=== PATIENT | female | born 2005 | race Caucasian/White ===

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

== ENCOUNTER 2023-12-31 17:31 | Inpatient (IN) | payer OTHER, MEDICAID ==
[~2023-12-31] VITALS: Ht 162.6 cm; Wt 127.3 kg
[~2023-12-31 17:31] MED LIST changes: +ABIL1TAB13 PO; +BUSP10TA PO; +FLUO-290 PO; -FLUO10CA18 PO; +FLUV100C PO; +HYDR50TA70 PO
[2023-12-31 18:37] LABS: HEMATOCRIT 37.6 % (36.0-47.0); HEMOGLOBIN 12.1 g/dl (12.0-15.5); MEAN CORPUSCULAR HEMOGLOBIN 25.9 pg (27.0-33.0); MEAN CORPUSCULAR HGB CONC 32.2 g/dl (32.0-36.5); MEAN CORPUSCULAR VOLUME 80.3 fl (80.0-96.0); PLATELET COUNT, AUTOMATED 417 10^3/uL (150-450); RED BLOOD COUNT 4.68 10^6/uL (4.00-5.40); WHITE BLOOD COUNT 10.2 10^3/uL (4.0-10.0)
[2023-12-31 19:03] LABS: ETHYL ALCOHOL (ETHANOL) < 0.003 % (0.000-0.010)
[2023-12-31 19:04] LABS: HCG, SERUM QUALITATIVE NEGATIVE (NEGATIVE)
[2023-12-31 19:05] LABS: ALBUMIN 3.6 G/DL (3.2-5.2); ALKALINE PHOSPHATASE 124 U/L (46-116); ALT/SGPT 28 U/L (7.0-40); AST/SGOT 14 U/L (<34); BILIRUBIN,DIRECT < 0.1 MG/DL (<0.4); BILIRUBIN,TOTAL 0.3 MG/DL (0.3-1.2); BLOOD UREA NITROGEN 12 MG/DL (9-23); CARBON DIOXIDE LEVEL 25 MMOL/L (20-31); CHLORIDE LEVEL 107 MMOL/L (98-107); CREATININE FOR GFR 0.59 MG/DL (0.55-1.30); GLUCOSE, FASTING 92 MG/DL (60-100); POTASSIUM SERUM 3.8 MMOL/L (3.5-5.1); SALICYLATE LEVEL < 3.0 MG/DL (<30); SODIUM LEVEL 138 MMOL/L (136-145); TOTAL PROTEIN 7.5 G/DL (5.7-8.2)
[2023-12-31 19:07] LABS: THYROID STIMULATING HORMONE 1.185 uIU/ML (0.48-4.17)
[2023-12-31 19:13] LABS: AMPHETAMINES LEVEL URINE NEGATIVE (NEGATIVE)
[2023-12-31 19:14] LABS: BARBITURATES URINE NEGATIVE (NEGATIVE); BENZODIAZEPINES URINE NEGATIVE (NEGATIVE); CANNABINOIDS URINE NEGATIVE (NEGATIVE); COCAINE METABOLITE URINE NEGATIVE (NEGATIVE); METHADONE URINE NEGATIVE (NEGATIVE); OPIATES URINE NEGATIVE (NEGATIVE); PHENCYCLIDINE URINE NEGATIVE (NEGATIVE)
[2023-12-31] MEDS ORDERED: HOME MED LIST COMPLETE! XX SCH (19:45)
[2023-12-31] MEDS ORDERED: MOM 30ML SUSPENSION UDC PO PRN (20:40)
[2023-12-31] MEDS ORDERED: IBUPROFEN 400MG TAB PO PRN (20:40)
[2023-12-31] MEDS ORDERED: ACETAMINOPHEN TAB 650MG DOSE (2X325MG) PO PRN (20:40)
[2023-12-31] MEDS ORDERED: diphenhydrAMINE 25MG CAP PO PRN (20:40)
[2023-12-31] MEDS ORDERED: MAALOX 30 ML SUSP *UDC PO PRN (20:40)
[2023-12-31] MEDS: fluvoxaMINE MALEATE 50 MG TAB PO SCH (21:13)
[2023-12-31 22:04] VITALS: BP 152/82; TEMP 97.1; O2SAT 99
[2024-01-01] MEDS: OLANZapine ORAL DISINTEGRATING TAB 5MG PO PRN (02:40)
[2024-01-01] MEDS: traZODone 50 MG TAB PO PRN (02:41)
[2024-01-01 06:14] VITALS: BP 145/65; TEMP 98; O2SAT 96
[2024-01-01 15:19] VITALS: BP 106/55; TEMP 96.8; O2SAT 99
[2024-01-01 19:06] LABS: CHOLESTEROL RISK RATIO 5.01 (<5); HDL CHOLESTEROL 41.1 MG/DL (>40); LDL CHOLESTEROL 121.5 MG/DL (<100); NON-HDL-C 164.9 MG/DL
[2024-01-01 19:10] LABS: FREE T4 1.06 NG/DL (0.83-1.43); THYROID STIMULATING HORMONE 2.173 uIU/ML (0.48-4.17)
[2024-01-01] MEDS: hydrOXYzine 50 MG TAB PO PRN (22:49)
[2024-01-02 06:10] VITALS: BP 115/62; TEMP 97.8; O2SAT 96
[2024-01-02] MEDS: SERTRALINE 100 MG TAB PO SCH (09:00)
[2024-01-02] MEDS: CitaloPRAM (CeleXA) 10 MG TABLET PO SCH (11:03)
[2024-01-02] MEDS ORDERED: hydrOXYzine 50 MG TAB PO PRN (11:15)
[2024-01-02] MEDS: hydrOXYzine 50 MG TAB PO SCH (11:40)
[2024-01-02 16:33] VITALS: BP 122/61; TEMP 97.3; O2SAT 95
[2024-01-03 06:22] VITALS: BP 122/64; TEMP 97.1; O2SAT 96
[2024-01-03 17:12] VITALS: BP 145/85; TEMP 97.4; O2SAT 97
[2024-01-03] MEDS: traZODone 100 MG TAB PO PRN (21:24)
[2024-01-04 06:26] VITALS: BP 110/55; TEMP 97.4; O2SAT 96
[2024-01-04] MEDS: CitaloPRAM (CeleXA) 20 MG TAB PO SCH (09:50)
[2024-01-04 18:28] VITALS: BP 155/74; TEMP 98.5; O2SAT 98
[2024-01-05 05:49] VITALS: BP 101/54; TEMP 97.4; O2SAT 98
[2024-01-05 15:49] VITALS: BP 133/71; TEMP 98; O2SAT 98
[2024-01-06 06:21] VITALS: BP 109/59; TEMP 97.3; O2SAT 96
[2024-01-06 16:31] VITALS: BP 130/73; TEMP 97.8; O2SAT 98
[2024-01-07 05:38] VITALS: BP 113/59; TEMP 96.8; O2SAT 98
[2024-01-07 18:30] VITALS: BP 121/68; TEMP 98.1
[2024-01-08 06:06] VITALS: BP 107/52; TEMP 97; O2SAT 96
[2024-01-08 17:35] VITALS: BP 110/59; TEMP 98.8; O2SAT 98
[2024-01-08 18:44] LABS: URINE PREG TEST NEGATIVE (NEGATIVE)
[2024-01-09 06:39] VITALS: BP 133/65
[2024-01-09] MEDS ORDERED: CELE40TA PO (07:19)
[2024-01-09] MEDS ORDERED: TRAZ-257 PO (07:19)
[2024-01-09] MEDS ORDERED: HYDR50TA70 PO (07:19)
[2024-01-09 16:02] VITALS: BP 127/59; TEMP 97.2
[2024-01-10 06:36] VITALS: BP 124/86; TEMP 97.6; O2SAT 96
== END 2024-01-10 10:30 | disposition home or self-care (01) | DRG 755 ==
LOC: M ED 17:31 → M ED INP 20:38 → M PSY 21:49
PROVIDERS: ADMIT Psychiatry & Neurology Psychiatry; ATTEND Psychiatry & Neurology Psychiatry
DX: F42.9 Obsessive-compulsive disorder, unspecified (principal); R45.851 Suicidal ideations; F32.A Depression, unspecified; F41.1 Generalized anxiety disorder; R63.5 Abnormal weight gain; R00.0 Tachycardia, unspecified; Z56.0 Unemployment, unspecified; Z91.51 Personal history of suicidal behavior; Z91.52 Personal history of nonsuicidal self-harm; Z79.899 Other long term (current) drug therapy

== ENCOUNTER 2024-01-21 18:06 | Inpatient (IN) | payer MEDICAID, OTHER ==
[~2024-01-21] VITALS: Ht 165.1 cm; Wt 127.9 kg
[~2024-01-21 18:06] MED LIST changes: +CELE40TA PO; +TRAZ-257 PO
[2024-01-21 19:07] LABS: HEMOGLOBIN 11.9 g/dl (12.0-15.5); MEAN CORPUSCULAR HEMOGLOBIN 25.8 pg (27.0-33.0); MEAN CORPUSCULAR HGB CONC 32.2 g/dl (32.0-36.5); MEAN CORPUSCULAR VOLUME 80.1 fl (80.0-96.0); PLATELET COUNT, AUTOMATED 364 10^3/uL (150-450); RED BLOOD COUNT 4.62 10^6/uL (4.00-5.40); WHITE BLOOD COUNT 9.5 10^3/uL (4.0-10.0)
[2024-01-21 19:16] LABS: HCG, SERUM QUALITATIVE NEGATIVE (NEGATIVE)
[2024-01-21 19:17] LABS: ETHYL ALCOHOL (ETHANOL) < 0.003 % (0.000-0.010)
[2024-01-21 19:18] LABS: SALICYLATE LEVEL < 3.0 MG/DL (<30)
[2024-01-21 19:19] LABS: ALBUMIN 3.5 G/DL (3.2-5.2); ALKALINE PHOSPHATASE 121 U/L (46-116); ALT/SGPT 25 U/L (7.0-40); AST/SGOT 13 U/L (<34); BILIRUBIN,DIRECT < 0.1 MG/DL (<0.4); BILIRUBIN,TOTAL 0.2 MG/DL (0.3-1.2); BLOOD UREA NITROGEN 12 MG/DL (9-23); CALCIUM LEVEL 8.8 MG/DL (8.5-10.1); CARBON DIOXIDE LEVEL 25 MMOL/L (20-31); CHLORIDE LEVEL 108 MMOL/L (98-107); CREATININE FOR GFR 0.66 MG/DL (0.55-1.30); GLUCOSE, FASTING 116 MG/DL (60-100); POTASSIUM SERUM 3.7 MMOL/L (3.5-5.1); SODIUM LEVEL 139 MMOL/L (136-145); TOTAL PROTEIN 7.2 G/DL (5.7-8.2)
[2024-01-21 19:21] LABS: THYROID STIMULATING HORMONE 1.732 uIU/ML (0.48-4.17)
[2024-01-21] MEDS ORDERED: HYDR50TA70 PO (20:22)
[2024-01-21] MEDS ORDERED: CITA40TA7 PO (20:22)
[2024-01-21] MEDS ORDERED: TRAZ-189 PO (20:22)
[2024-01-21] MEDS ORDERED: HOME MED LIST COMPLETE! XX SCH (20:25)
[2024-01-21 20:58] LABS: AMPHETAMINES LEVEL URINE NEGATIVE (NEGATIVE); BARBITURATES URINE NEGATIVE (NEGATIVE); BENZODIAZEPINES URINE NEGATIVE (NEGATIVE); COCAINE METABOLITE URINE NEGATIVE (NEGATIVE); METHADONE URINE NEGATIVE (NEGATIVE)
[2024-01-21 20:59] LABS: CANNABINOIDS URINE NEGATIVE (NEGATIVE); OPIATES URINE NEGATIVE (NEGATIVE); PHENCYCLIDINE URINE NEGATIVE (NEGATIVE)
[2024-01-21] MEDS ORDERED: diphenhydrAMINE 25MG CAP PO PRN (23:35)
[2024-01-21] MEDS ORDERED: MAALOX 30 ML SUSP *UDC PO PRN (23:35)
[2024-01-21] MEDS ORDERED: MOM 30ML SUSPENSION UDC PO PRN (23:35)
[2024-01-21] MEDS ORDERED: IBUPROFEN 400MG TAB PO PRN (23:35)
[2024-01-22] MEDS: traZODone 50 MG TAB PO PRN (01:18)
[2024-01-22 01:37] VITALS: BP 128/85; TEMP 98.2; O2SAT 97
[2024-01-22 06:19] VITALS: BP 107/56; TEMP 97.2; O2SAT 99
[2024-01-22 15:36] VITALS: BP 132/59; TEMP 97.7; O2SAT 98
[2024-01-22] MEDS: hydrOXYzine 50 MG TAB PO PRN (18:59)
[2024-01-22] MEDS: CitaloPRAM (CeleXA) 20 MG TAB PO SCH (20:27)
[2024-01-22] MEDS: traZODone 100 MG TAB PO PRN (20:28)
[2024-01-23 06:12] VITALS: BP 131/87; TEMP 97.9; O2SAT 98
[2024-01-23] MEDS: CitaloPRAM (CeleXA) 20 MG TAB PO SCH (09:03)
[2024-01-23 17:04] VITALS: BP 128/72; TEMP 97.3; O2SAT 99
[2024-01-23] MEDS: fluvoxaMINE MALEATE 50 MG TAB PO SCH (20:47)
[2024-01-24 06:31] VITALS: BP 113/52; TEMP 97.5; O2SAT 96
[2024-01-24 18:22] VITALS: BP 113/64; TEMP 97.2; O2SAT 100
[2024-01-25 06:04] VITALS: BP 120/64; TEMP 97; O2SAT 98
[2024-01-25 16:09] VITALS: BP 141/69; TEMP 97.8; O2SAT 98
[2024-01-26 06:12] VITALS: BP 113/57; TEMP 97.1; O2SAT 97
[2024-01-26] MEDS: CEPACOL LOZENGE PO PRN (14:12)
[2024-01-26 15:58] VITALS: BP 115/69; TEMP 97.5; O2SAT 98
[2024-01-26] MEDS: fluvoxaMINE MALEATE 50 MG TAB PO SCH (21:28)
[2024-01-27] MEDS: ACETAMINOPHEN TAB 650MG DOSE (2X325MG) PO PRN (06:14)
[2024-01-27 06:17] VITALS: BP 123/63; TEMP 97.9; O2SAT 96
[2024-01-27 15:48] VITALS: BP 127/74; TEMP 97.8; O2SAT 97
[2024-01-28 06:18] VITALS: BP 109/60; TEMP 97.1; O2SAT 97
[2024-01-28] MEDS ORDERED: BREXPIPRAZOLE 0.5MG TABLET (REXULTI) PO SCH (09:00)
[2024-01-28] MEDS: fluvoxaMINE MALEATE 50 MG TAB PO SCH (09:56)
[2024-01-28 15:20] VITALS: BP 130/74; TEMP 97.6; O2SAT 97
[2024-01-28] MEDS: BREXPIPRAZOLE 0.5MG TABLET (REXULTI) PO SCH (21:46)
[2024-01-29 06:15] VITALS: BP 138/79; TEMP 97.4; O2SAT 97
[2024-01-29 16:45] VITALS: BP 127/60; TEMP 97.4; O2SAT 97
[2024-01-30] MEDS: AMOXICILLIN 500 MG CAP PO SCH (08:37)
[2024-01-30 15:29] VITALS: BP 115/56; TEMP 98.7; O2SAT 98
[2024-01-31 06:38] VITALS: BP 122/86; TEMP 97.5; O2SAT 99
[2024-02-01 06:21] VITALS: BP 129/81; TEMP 98.1; O2SAT 98
[2024-02-01] MEDS ORDERED: AMOX500C PO (08:55)
[2024-02-01] MEDS ORDERED: FLUV50TA PO ×2 (08:55)
[2024-02-01] MEDS ORDERED: REXU1TAB2 PO (08:55)
== END 2024-02-01 11:01 | disposition home or self-care (01) | DRG 751 ==
LOC: M ED 18:06 → M ED INP 23:33 → M PSY 01-22 00:45
PROVIDERS: ADMIT Psychiatry & Neurology Psychiatry; ATTEND Psychiatry & Neurology Psychiatry
DX: F33.1 Major depressive disorder, recurrent, moderate (principal); R45.851 Suicidal ideations; F42.9 Obsessive-compulsive disorder, unspecified; Z91.51 Personal history of suicidal behavior; Z81.1 Family history of alcohol abuse and dependence; Z81.8 Family history of other mental and behavioral disorders; Z79.899 Other long term (current) drug therapy; J02.0 Streptococcal pharyngitis